=== PATIENT | male | born 1950 | race Two or more races ===

== ENCOUNTER 2018-10-20 09:26 | Outpatient (CLI) | payer OTHER | END 2018-10-20 09:33 | disposition home or self-care (01) | LOC: RAD 09:26 | DX: N30.20 Other chronic cystitis without hematuria (principal) ==

== ENCOUNTER 2021-11-15 13:38 | Outpatient (CLI) | payer OTHER | END 2021-11-15 13:39 | disposition home or self-care (01) | LOC: SONOGRAMA 13:38 | PROVIDERS: ATTEND Family Medicine | DX: K40.20 Bilateral inguinal hernia, without obstruction or gangrene, not specified as recurrent (principal) ==

== ENCOUNTER 2024-05-27 09:40 | Outpatient (CLI) | payer OTHER | END 2024-05-27 09:41 | disposition home or self-care (01) | LOC: NUCLEAR 09:40 | PROVIDERS: ATTEND Orthopaedic Surgery | DX: M81.0 Age-related osteoporosis without current pathological fracture (principal) ==

== ENCOUNTER → 2024-06-10 08:07 | Outpatient (CLI) | payer OTHER | END | disposition home or self-care (01) | LOC: LAB 08:07 | PROVIDERS: ATTEND Orthopaedic Surgery | DX: E55.9 Vitamin D deficiency, unspecified (principal); E56.1 Deficiency of vitamin K; M85.9 Disorder of bone density and structure, unspecified ==